=== PATIENT | female | born 1975 | race Caucasian/White ===

== ENCOUNTER 2018-05-23 11:55 | Emergency (ER) | payer MEDICAID ==
[~2018-05-23] VITALS: Ht 160 cm; Wt 90.9 kg
[~2018-05-23 11:55] MED LIST: ADDERALL 30 MG30 MG PO; AMBIEN CR12.5 MG/BO PO; CYMBALTA60 MG PO; KLONOPIN1 MG PO; LAMICTAL25 MG; MACROBID100 MG PO; MOBIC7.5 MG PO; PROTONIX40 MG PO; SYNTHROID300 MCG PO; VALIUM10 MG PO; VALIUM5 MG PO; ZYPREXA2.5 MG PO
[2018-05-23 12:15] VITALS: Ht 160 cm; Wt 90.9 kg
[2018-05-23 12:48] LABS: HCG SERUM NEGATIVE (NEGATIVE)
[2018-05-23] MEDS ORDERED: ALBUTEROL SULF8.5 GM INH (14:05)
[2018-05-23] MEDS ORDERED: SYNTHROID300 MCG PO (14:05)
[2018-05-23 14:30] VITALS: BP 118/88
== END 2018-05-23 14:31 | disposition home or self-care (01) ==
LOC: D.ER 11:55
PROVIDERS: Family Medicine
DX: E03.9 Hypothyroidism, unspecified (principal)